=== PATIENT | female | born 1940 | race Caucasian/White ===

== ENCOUNTER → 2024-02-02 11:31 | Outpatient (REF) | payer BC, SELFPAY | LOC: DHCBC/DCA 11:31 | PROVIDERS: ATTENDING PHYSICIAN Internal Medicine; FAMILY PHYSICIAN Family Medicine | DX: R06.09 Other forms of dyspnea (principal); I10 Essential (primary) hypertension | CPT/HCPCS: 78452; 93017; A9500; J2785 ==

== ENCOUNTER 2025-01-23 16:28 | Emergency (ER) | payer BC, SELFPAY ==
[2025-01-23 16:37] VITALS: BP 175/91
[2025-01-23 17:11] LABS: % Basophils 0.3 % (0-2); % Eosinophils 1.8 % (0-6); % Immature Granulocytes 0.3 % (0-0.5); % Lymphocytes 20.7 % (20.5-51.1); % Monocytes 6.4 % (1.7-9.3); % Neutrophils 70.5 % (42.2-75.2); Absolute Eosinophils 0.1 10^3/uL (0-0.7); Absolute Lymphocytes 1.2 10^3/uL (1.2-3.4); Absolute Monocytes 0.4 10^3/uL (0.1-0.6); Absolute Neutrophils 4.2 10^3/uL (1.4-6.5); Hematocrit 39.4 % (37.0-47.0); Hemoglobin 13.2 g/dL (12.0-16.0); Mean Corp Hgb Conc. 33.5 g/dL (33.0-37.0); Mean Corpuscular Hgb 31.7 pg (27.0-31.0); Mean Corpuscular Volume 94.7 fL (81.0-99.0); Mean Platelet Volume 10.4 fL (7.4-10.4); Nucleated Red Blood Cells % 0 %; Platelet Count 406 10^3/uL (130-400); Red Blood Cell Count 4.16 10^6/uL (4.20-5.40); Red Cell Dist. Width 13.6 % (11.5-14.5)
[2025-01-23 17:25] LABS: ALT (SGPT) 16 U/L (0-35); AST (SGOT) 27 U/L (14-36); Albumin 4.4 g/dl (3.5-5.0); Alkaline Phosphatase 90 U/L (38-126); Blood Urea Nitrogen 17 mg/dl (7-17); Calcium 9.9 mg/dl (8.4-10.2); Carbon Dioxide 27 mmol/L (22-30); Chloride 103 mmol/L (98-107); Glucose 118 mg/dl (70-99); Potassium 4.3 mmol/L (3.5-5.1); Sodium 137 mmol/L (135-145); Total Bilirubin 0.9 mg/dl (0.2-1.3); Total Protein 7.2 g/dl (6.3-8.2); eGFR > 60.00
[2025-01-23 18:21] VITALS: BP 199/87
[2025-01-23 18:25] VITALS: BMI 25.3
--- NOTE | 2025-01-23 18:29 | EDRN ---
Pt states she arrives for high BP w/ SBP 210 prior to arrival. Pt states her biggest complaint is L lower back pain radiating into her groin at 8-07/12. On Thursday pt lifted a pack w/ 12 cans and twisted to set it down and got back pain in that area
but Thursday no pain, all better. Yesterday pain was very bad and worse today. Pt thinks pain may be causing her HTN. Pt is dizzy w/ movement, has sl nausea/no vomiting, and tinnitus. Pt's spouse is recovering from injury and had VN who was
concerned about pt and took BP and it was SBP 210 and advised pt to come to ER.
--- NOTE | 2025-01-23 18:45 | ED.GENMED ---
History of Present Illness
General
Chief Complaint: Blood Pressure Problem
Source: patient
Time Seen by Provider: 01/23/25 18:23
History of Present Illness
History of Present Illness:
84-year-old female presents emergent complaining of right low back pain which radiates down into her groin. Pain has been present for the past couple days. Nothing seems to make it better or worse. She thought she may have tweaked her back Thursday
but Thursday her symptoms were completely gone only to return yesterday. No fever or chills. Positive nausea. No dysuria or frequency. Patient denies any history of kidney stones or other intra-abdominal pathology. Patient has also noted her
blood pressure is elevated but believes it is secondary to her significant pain. Patient feels dizzy when she sits up like the room is
Past History
Past History
ED Past Medical History: Arrthythmia, HTN, Hypothyroidism and Other (essential thrombocytopenia)
ED Past Surgical History: Cardiac (Ablations)
Social History
Tobacco: Non-smoker
Alcohol: None
Personal:
Living: with family
Phy Exam
Physical Exam
Physical Exam:
General: Awake, Alert, Oriented X3. No acute distress.
Vitals: Hypertensive
Head: Atraumatic
Eyes: Pupils equal, EOMI
Throat: Airway intact, no exudates
Neck: Trachea midline
Lungs: Clear and equal b/l
Heart: Regular rate, no murmurs
Back: No significant CVA tenderness to percussion. No rash noted
Abd: Soft, Nontender, No pulsatile mass
Neuro: Cranial nerves intact, muscle strength equal bilaterally
Skin: Warm, dry, no rash
Extremities: pulses equal b/l, no edema
Course
Orders/Labs/Results
Orders:
Orders
01/23/25 16:41
Electrocardiogram (*1) Urgent
Reason for Study: Other
Other Reason for Exam: elevated BP
EKG- Treatment ONCE
01/23/25 16:54
CMP [Comprehensive Metabolic Panel] Urgent
Complete Blood Count/With Diff Urgent
01/23/25 18:43
Ketorolac [Toradol] 15 mg IV NOW STA
01/23/25 18:44
CT Abd/pelvis W Iv Cont Urgent
Comment:
Reason For Exam: right flank/abd pain
01/23/25 18:46
0.9% Sodium Chloride 500 ml [Nss] 500 ml IV BOLUS
01/23/25 18:47
CT Head W/o Iv Contrast Urgent
Comment:
Reason For Exam: headache, dizziness
01/23/25 19:41
Urinalysis Reflex To Culture Urgent
Date Specimen was Collected: 01/23/25
Time Specimen was Collected: 19:39
01/23/25 19:53
Acetaminophen [Tylenol] 1,000 mg PO NOW STA
Lidocaine [Lidocaine 4% Patch] 1 patch TOPICAL NOW STA
Apply Lidocaine patch(s) to:: left lumbar
Abnormal Lab Results
01/23/25 01/23/25
16:54 19:41
RBC 4.16 L 10^6/uL
(4.20-5.40)
MCH 31.7 H pg
(27.0-31.0)
Plt Count 406 H 10^3/uL
(130-400)
Glucose 118 H mg/dl
(70-99)
Urine Ketones 2+ A
(Negative)
01/23/25 16:54
01/23/25 16:54
Vital Signs
Initial and Last Documented VS:
Initial Vital Signs
Temp Pulse Resp BP Pulse Ox
97.8 F 77 18 175/91 99
01/23/25 16:37 01/23/25 16:37 01/23/25 16:37 01/23/25 16:37 01/23/25 16:37
Last Documented Vital Signs
Temp Pulse Resp BP Pulse Ox
98.2 F 82 17 160/75 97
01/23/25 20:45 01/23/25 20:30 01/23/25 20:30 01/23/25 20:30 01/23/25 20:30
MDM/Problems Addressed
Differential Diagnosis Includes:
Kidney stone, abdominal aortic aneurysm, pyelonephritis, musculoskeletal back pain
MDM/Problems Addressed:
Patient presents with back pain and evaluate blood pressure. She appears somewhat uncomfortable. She was complaining of dizziness. Patient treated with a fluid bolus of normal saline as well as 15 mg of Toradol. She had moderate relief of her
discomfort. Labs are reassuring. Urine does not show any evidence for an infection. CT of the abdomen pelvis with IV contrast shows no evidence for an abdominal aortic aneurysm. There is no evidence for kidney stone or hydronephrosis. There is
no acute pathology noted. 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 CT of the head obtained given her dizziness, hypertension and headache. This shows no acute abnormalities. Patient's blood pressure improved down to 160/75 with just analgesia.
Ultimately I believe the patient's discomfort is musculoskeletal in nature. Will treat her with lidocaine patch, Tylenol, ibuprofen. Prescription for Skelaxin sent but told the patient to use it sparingly and carefully. Follow-up with her primary
care provider.
*Radiology
Radiology exam reviewed: radiology read reviewed
*Pulse Oximetry
Patient hypoxic: no
*EKG
Interpreted by ED Provider?: Yes
Heart Rate: 81
Rate: normal
Rhythm: sinus
[place]: normal axis
Interval: first degree heart block
QRS Pattern: normal QRS
Ischemia: no ischemia
*Time Broker Interpretation
Rate: normal
Interpretation: normal
Rhythm: sinus
*Critical Care Note
Total Time (30-74mins, 75-104mins- exclusive of procedures): Not Applicable
Patient Management
Social determinants of health affecting care: Strong social support
ED Attending Note
-
Portions of this chart may have been created with voice recognition software.� Occasional wrong word or��sound alike� substitutions may have occurred due to the inherent limitations of voice recognition software.
Discharge Plan
Departure
Patient Disposition: Home (Routine Discharge)
Date of Disposition: 01/23/25
Time of Disposition: 20:31
Patient with high blood pressure during this ER visit?: Yes
Condition: Good
Discharge Problem:
Low back pain
Instructions: High Blood Pressure (DC), Back Muscle Strain
Prescriptions:
New
metaxalone 800 mg tablet
800 mg PO TID PRN (Reason: muscle pain) Qty: 20 0RF
No Action
valsartan [Diovan] 160 MG capsule
160 mg PO BID
hydralazine 10 MG tablet
10 mg PO BID PRN (Reason: elevated BP > 170)
hydroxyurea 500 MG capsule
500 mg PO HS
carvedilol 12.5 MG tablet
12.5 mg PO HS
levothyroxine 100 MCG tablet
100 mcg PO DAILY
nitroglycerin 0.4 MG tablet, sublingual
0.4 mg sublingual [id number] PRN (Reason: CHEST PAIN)
Aspirin Low Strength Chewable:
81 mg PO DAILY
Referrals:
Richy Goff MD [Family Provider] -
Cuong Ewing MD [Active] -
Activity Restrictions/Additional Instructions:
It appears your back pain is due to musculoskeletal back pain. The CAT scan of your abdomen and pelvis does not identify any serious problem in the abdomen or pelvis. You do have some degenerative changes of your spine which would be expected at
your age. Recommend taking Tylenol 650 mg and ibuprofen 400 mg every 6 hours for pain. You can also use Lidoderm patches. I have sent a prescription for Skelaxin which is a muscle relaxant which she can use every 8 hours as needed for the pain.
This medication could cause you to feel sleepy so be careful taking it. I have given you contact information for Dr. Cuong Ewing who is a pain management doctor that can do epidural injections etc. if your pain is not improving with the above
plan. Also follow-up with your primary care provider
Interventions
Interventions:
*Risk Screen - Suicide Last Done: 01/23/25 16:37
*General Assessment Last Done: 01/23/25 18:24
*Neglect/Abuse Screening Last Done: 01/23/25 18:24
*ED- Fall Risk Assessment Last Done: 01/23/25 18:24
*ED COVID-19 Vaccine History Last Done: 01/23/25 18:24
*Nursing Disposition Last Done: 01/23/25 20:55
ED- Cardiac Assessment Last Done: 01/23/25 18:27
ED- Neurological Assessment Last Done: 01/23/25 18:27
ED- Pulmonary Assessment Last Done: 01/23/25 18:27
Discharge Date and Time
Print Language: EQUATORIAL GUINEAN
[2025-01-23] MEDS: TORADOL 15 MG IV (18:52)
[2025-01-23] MEDS: NSS 500 IV (18:55)
[2025-01-23 19:34] VITALS: BP 179/89
[2025-01-23 19:47] LABS: Urine Albumin Negative (Neg - Trace); Urine Bilirubin Negative (Negative); Urine Character Clear (Clear); Urine Color Yellow; Urine Glucose Negative (Negative); Urine Ketone 2+ (Negative); Urine Leukocyte Negative (Negative); Urine Nitrite Negative (Negative); Urine Occult Blood Negative (Negative); Urine Urobilinogen Negative (Neg - 1+)
[2025-01-23] MEDS: LIDOCAINE 4% PATCH 1 PATCH TOPICAL (20:06)
[2025-01-23] MEDS: TYLENOL 1000 MG PO (20:08)
[2025-01-23 20:10] VITALS: BP 169/91
[2025-01-23 20:30] VITALS: BP 160/75
== END 2025-01-23 20:55 | disposition home or self-care (01) ==
LOC: EMR 16:28
PROVIDERS: Emergency Medicine; EMERGENCY PHYSICIAN Emergency Medicine; FAMILY PHYSICIAN Family Medicine
DX: M54.50 Low back pain, unspecified (principal); R10.9 Unspecified abdominal pain; E03.9 Hypothyroidism, unspecified; I10 Essential (primary) hypertension
CPT/HCPCS: 96374; 96361; 99284; 70450; 74177; 80053; 81003; 85025; 93005; Q9967

== ENCOUNTER → 2025-06-27 09:58 | Outpatient (REF) | payer BC, SELFPAY ==
[2025-06-27 10:21] LABS: Hematocrit 36.7 % (37.0-47.0); Hemoglobin 12.1 g/dL (12.0-16.0); Mean Corp Hgb Conc. 33.0 g/dL (33.0-37.0); Mean Corpuscular Volume 96.1 fL (81.0-99.0); Nucleated Red Blood Cells % 0 %; Platelet Count 339 10^3/uL (130-400); Red Cell Dist. Width 13.5 % (11.5-14.5)
[2025-06-27 10:35] LABS: ALT (SGPT) 17 U/L (0-35); AST (SGOT) 26 U/L (14-36); Albumin 4.6 g/dl (3.5-5.0); Alkaline Phosphatase 71 U/L (38-126); Blood Urea Nitrogen 25 mg/dl (7-17); Calcium 9.5 mg/dl (8.4-10.2); Carbon Dioxide 28 mmol/L (22-30); Chloride 106 mmol/L (98-107); Glucose 89 mg/dl (70-99); Potassium 4.7 mmol/L (3.5-5.1); Sodium 139 mmol/L (135-145); Total Protein 7.0 g/dl (6.3-8.2); eGFR > 60.00
== END ==
LOC: REG 09:58
PROVIDERS: ATTENDING PHYSICIAN Internal Medicine Hematology & Oncology; FAMILY PHYSICIAN Family Medicine
DX: D75.89 Other specified diseases of blood and blood-forming organs (principal); D47.3 Essential (hemorrhagic) thrombocythemia; E03.9 Hypothyroidism, unspecified
CPT/HCPCS: 36415; 80053; 84439; 84443; 85025